=== PATIENT | male | born 1990 | race Caucasian/White ===

== ENCOUNTER 2016-10-29 03:14 | Emergency (ER) | payer MEDICAID, OTHER ==
[~2016-10-29] VITALS: Ht 188 cm; Wt 138.0 kg
[2016-10-29] MEDS ORDERED: SODIUM CHLORIDE 0.9% 1,000 ML IV ONE (03:37)
[2016-10-29] MEDS ORDERED: LEVETIRACETAM 500MG PREMIX 100 ML IV ONE (03:45)
[2016-10-29 04:31] LABS: BASOPHILS % 0.9 % (0.0-2.0); HEMATOCRIT. 37.7 % (42.0-52.0); HEMOGLOBIN. 12.8 g/dL (14.0-18.0); LYMPHOCYTES % 19.7 % (20.0-50.0); MEAN CORPUSCULAR HEMOGLOBIN 29.1 pg (28.0-32.0); MEAN CORPUSCULAR VOLUME 85.9 fL (80.0-94.0); MEAN PLATELET VOLUME 6.4 fl (7.4-10.4); MONOCYTES % 11.2 % (2.0-8.0); NEUTROPHILS % 67.2 % (40.0-76.0); PLATELET 288 x1000/uL (130-400); RED BLOOD CELL COUNT 4.39 mill/uL (4.7-6.1); RED CELL DISTRIBUTION WIDTH 15.2 % (11.6-14.6)
[2016-10-29 04:43] LABS: CARBON DIOXIDE 22 mEq/L (21-32); CHLORIDE 103 mEq/L (98-107)
[2016-10-29 05:45] VITALS: BP 142/77
== END 2016-10-29 06:20 | disposition home or self-care (01) ==
LOC: ER 03:49
DX: G40.909 Epilepsy, unspecified, not intractable, without status epilepticus (principal); F79 Unspecified intellectual disabilities; F84.0 Autistic disorder; Z90.49 Acquired absence of other specified parts of digestive tract
CPT/HCPCS: 36415; 70450; 80053; 85025; 96365; 99285; J1953; J7030; Z7610

== ENCOUNTER 2017-06-24 00:32 | Emergency (ER) | payer OTHER ==
[~2017-06-24] VITALS: Ht 177.8 cm; Wt 114.0 kg
[2017-06-24 00:45] VITALS: BP 138/90
== END 2017-06-24 01:36 | disposition left against medical advice (07) ==
LOC: ER 00:32
DX: Z53.21 Procedure and treatment not carried out due to patient leaving prior to being seen by health care provider (principal); Z90.49 Acquired absence of other specified parts of digestive tract; F84.0 Autistic disorder

== ENCOUNTER 2021-04-19 23:41 | Emergency (ER) | payer OTHER ==
[~2021-04-19] VITALS: Ht 190.5 cm; Wt 122.0 kg
[2021-04-19 23:55] VITALS: BP 127/78
[2021-04-20] MEDS ORDERED: LEVETIRACETAM 500MG PREMIX 100 ML IV ONE
== END 2021-04-20 01:30 | disposition home or self-care (01) ==
LOC: ER 23:41
DX: R56.9 Unspecified convulsions (principal); Z90.49 Acquired absence of other specified parts of digestive tract; Z98.890 Other specified postprocedural states
CPT/HCPCS: 93005; 99283

== ENCOUNTER 2021-06-05 09:14 | Emergency (ER) | payer OTHER ==
[~2021-06-05] VITALS: Ht 188 cm; Wt 118.0 kg
[2021-06-05] MEDS ORDERED: trileptal (09:18)
[2021-06-05 09:58] VITALS: BP 146/90
[2021-06-05 11:25] LABS: BASOPHILS % 0.9 % (0.0-2.0); EOSINOPHILS % 0.6 % (0.0-5.0); HEMATOCRIT. 42.2 % (42.0-52.0); HEMOGLOBIN. 14.6 g/dL (14.0-18.0); LYMPHOCYTES % 20.2 % (20.0-50.0); MEAN CORPUSCULAR HEMOGLOBIN 30.2 pg (28.0-32.0); MEAN CORPUSCULAR VOLUME 87.6 fL (80.0-94.0); MEAN PLATELET VOLUME 6.7 fl (7.4-10.4); MONOCYTES % 8.3 % (2.0-8.0); PLATELET 310 x1000/uL (130-400); RED BLOOD CELL COUNT 4.82 mill/uL (4.7-6.1); RED CELL DISTRIBUTION WIDTH 14.8 % (11.6-14.6)
[2021-06-05] MEDS ORDERED: SODIUM CHLORIDE 0.9% 1,000 ML IV ONE (11:30)
[2021-06-05 12:20] LABS: CHLORIDE 100 mEq/L (98-107)
[2021-06-05 12:32] LABS: VALPROIC ACID < 3.0 ug/mL (50-100)
[2021-06-05 12:34] LABS: CARBAMAZEPINE < 0.5 ug/mL (4-12); PHENOBARBITAL < 2.1 ug/mL (15.0-40.0)
[2021-06-05] MEDS ORDERED: CEFTRIAXONE 1 G PREMIX 50 ML IV ONE (13:00)
[2021-06-05] MEDS ORDERED: AZITHROMYCIN 500MG/250ML 250 ML IV ONE (13:00)
[2021-06-05] MEDS ORDERED: CARBAMAZEPINE 200MG TABLET PO NR (13:30)
[2021-06-05] MEDS ORDERED: DOXY100T2 MT (14:00)
[2021-06-05] MEDS ORDERED: DOXYCYCLINE HYCLATE 100MG CAPSULE PO ONE (14:45)
== END 2021-06-05 15:00 | disposition home or self-care (01) ==
LOC: ER 09:28
DX: J18.1 Lobar pneumonia, unspecified organism (principal); R56.9 Unspecified convulsions; Z90.49 Acquired absence of other specified parts of digestive tract
CPT/HCPCS: 36415; 70450; 71045; 80053; 80156; 80165; 80184; 80185; 84484; 85025; 96360; 99285; J7030

== ENCOUNTER 2022-06-14 13:20 | Emergency (ER) | payer MEDICAID, OTHER ==
[~2022-06-14] VITALS: Ht 177.8 cm; Wt 109.0 kg
[~2022-06-14 13:20] MED LIST: DOXY100T2 MT; trileptal
[2022-06-14 13:55] VITALS: BP 143/78
[2022-06-14] MEDS ORDERED: LEVETIRACETAM 500MG PREMIX 100 ML IV ONE (14:30)
[2022-06-14] MEDS ORDERED: OXCARBAZEPINE 300MG TABLET PO SCH (15:00)
[2022-06-14] MEDS ORDERED: TOPIRAMATE 100MG TABLET PO SCH (15:00)
== END 2022-06-14 17:29 | disposition home or self-care (01) ==
LOC: ER 13:20
DX: R56.9 Unspecified convulsions (principal); S09.90XA Unspecified injury of head, initial encounter; Z90.49 Acquired absence of other specified parts of digestive tract; Z98.890 Other specified postprocedural states; W18.30XA Fall on same level, unspecified, initial encounter; Y93.89 Activity, other specified; Y92.89 Other specified places as the place of occurrence of the external cause; Y99.8 Other external cause status
CPT/HCPCS: 70450; 73080; 73090; 73110; 99284; Z7610